=== PATIENT | male | born 1965 | race Caucasian/White ===

== ENCOUNTER 2023-05-11 03:47 | Emergency (ER) | payer BC ==
[2023-05-11] MEDS: Ketorolac 30 MG/ML SDV IVPUSH ONE (04:31)
[2023-05-11 04:35] LABS: BASOPHILS ABSOLUTE AUTO 0.05 K/uL (0.00-0.20); BASOPHILS PERCENT AUTO 0.6 % (0.0-1.0); EOSINOPHILS ABSOLUTE AUTO 0.12 K/uL (0.00-0.45); EOSINOPHILS PERCENT AUTO 1.5 % (0.0-6.0); HEMATOCRIT 43.8 % (42.0-52.0); HEMOGLOBIN 15.1 g/dL (14.0-18.0); IMMATURE GRAN ABSOLUTE AUTO 0.01 K/uL (0.00-0.05); IMMATURE GRAN PERCENT AUTO 0.1 % (0.0-0.4); LYMPHOCYTES ABSOLUTE AUTO 2.21 K/uL (1.00-4.80); LYMPHOCYTES PERCENT AUTO 27.4 % (24.0-44.0); MEAN CORPUSCULAR HGB CONC 34.5 g/dL (32.0-36.0); MEAN CORPUSCULAR VOLUME 86.9 fL (83.0-99.0); MEAN PLATELET VOLUME 10.9 fL (9.4-12.4); MONOCYTES ABSOLUTE AUTO 0.85 K/uL (0.00-0.80); MONOCYTES PERCENT AUTO 10.5 % (0.0-8.0); NEUTROPHILS ABSOLUTE AUTO 4.82 K/uL (1.80-7.70); NEUTROPHILS PERCENT AUTO 59.9 % (41.0-71.0); PLATELET COUNT,PLT 279 K/uL (150-400); RED BLOOD CELL COUNT 5.04 M/uL (4.52-5.90); WHITE BLOOD CELL COUNT,WBC 8.06 K/uL (3.9-11.3)
[2023-05-11 05:00] LABS: CALCIUM 8.8 mg/dL (8.5-10.1); CARBON DIOXIDE,CO2 23.9 mmol/L (21.0-32.0); CREATININE 1.4 mg/dL (0.8-1.3); EST CRCL DRUG DOSING (CG) 67.38 mL/min; POTASSIUM,K 4.5 mmol/L (3.5-5.1)
[2023-05-11] MEDS: ceFAZolin 2 GM in Sodium Chloride 0.9% 50 ML IV ONE (05:23)
== END 2023-05-11 06:07 | disposition home or self-care (01) ==
LOC: MW.ED 03:47
DX: L03.113 Cellulitis of right upper limb (principal); Z86.16 Personal history of COVID-19
CPT/HCPCS: 36415; 73110; 80048; 85025; 96365; 96375; 99283; J0690; J1885; J3490

== ENCOUNTER 2023-05-25 02:21 | Emergency (ER) | payer BC ==
[2023-05-25] MEDS: Sulfamethoxazole/Trimethoprim 800-160 MG Tab PO ONE (02:43)
== END 2023-05-25 02:52 | disposition home or self-care (01) ==
LOC: MW.ED 02:21
DX: L03.113 Cellulitis of right upper limb (principal); Z86.16 Personal history of COVID-19
CPT/HCPCS: 99282; A9270; 99283

== ENCOUNTER 2024-01-17 02:02 | Emergency (ER) | payer BC ==
[2024-01-17] MEDS: Sulfamethoxazole/Trimethoprim 800-160 MG Tab PO ONE (02:20)
== END 2024-01-17 02:28 | disposition home or self-care (01) ==
LOC: MW.ED 02:02
DX: L03.113 Cellulitis of right upper limb (principal); Z79.899 Other long term (current) drug therapy
CPT/HCPCS: 99283; A9270